=== PATIENT | female | born 1955 | race Caucasian/White ===

== ENCOUNTER → 2017-04-16 | Outpatient (CLI) | payer OTHER ==
[~2017-04-16] MED LIST: ASPI81TA82 PO; CYCL-36 PO; DIAZ5 PO; IBUP-232 PO; LEVO.025 PO; OXYC1SOL5 PO; PREG25 PO; PROZ20CA11 PO; PROZ40CA PO; ZOCO40TA PO; ZOLP1TAB32 PO
--- NOTE | 2017-04-17 08:08 | RSPPFT ---
DATE OF PROCEDURE: 04/15/17 COMMENTS: VOLUMES DYNAMIC: FVC and FEV1 mildly reduced. STATIC: FRC, RV and TLC normal. FLOWS: FEV1% normal; FEF 25-75 moderately reduced. DIFFUSION: Mildly reduced. FLOW VOLUME LOOP: Terminal airflow obstruction. IMPRESSION: Mild obstructive ventilatory defect with a mild reduction in diffusion and no hyperinflation. Airways resistance is increased but there is minimal improvement post-bronchodilator.
== END ==
LOC: HRSP 09:52
PROVIDERS: ATTEND Internal Medicine
DX: J44.9 Chronic obstructive pulmonary disease, unspecified (principal)
CPT/HCPCS: 94060; 94618; 94726; 94729; 95012

== ENCOUNTER 2017-05-20 11:14 | Emergency (ER) | payer OTHER ==
[~2017-05-20] VITALS: Ht 167.6 cm; Wt 78.0 kg
[2017-05-20 11:51] VITALS: BP 139/73; PULSE 101; RESP 17; TEMP 98.4; O2SAT 94
[2017-05-20 12:58] LABS: AUTOMATED NEUTROPHIL # 5.5 TH/MM3 (1.8-7.7); BASOPHIL # 0.1 TH/MM3 (0-0.2); BASOPHIL % 1.1 % (0.0-2.0); EOSINOPHIL # 0.2 TH/MM3 (0-0.4); EOSINOPHIL % 2.4 % (0.0-4.0); HEMATOCRIT 39.2 % (35.0-46.0); HEMOGLOBIN 13.7 GM/DL (11.6-15.3); LYMPH % 27.2 % (9.0-44.0); LYMPHOCYTE # 2.5 TH/MM3 (1.0-4.8); MEAN CELL VOLUME 87.9 FL (80.0-100.0); MEAN CORPUSCULAR HEMOGLOBIN 30.7 PG (27.0-34.0); MEAN CORPUSCULAR HGB CONC 34.9 % (32.0-36.0); MEAN PLATELET VOLUME 7.9 FL (7.0-11.0); MONO % 8.6 % (0.0-8.0); MONOCYTE # 0.8 TH/MM3 (0-0.9); NEUT % 60.7 % (16.0-70.0); PLATELET COUNT 281 TH/MM3 (150-450); RED BLOOD COUNT 4.46 MIL/MM3 (4.00-5.30); RED CELL DISTRIBUTION WIDTH 13.3 % (11.6-17.2)
--- NOTE | 2017-05-20 13:06 | RADRPT ---
EXAM DATE/TIME: 05/20/2017 12:15 [facility] COMPARISON: No previous studies available for comparison. [facility] INDICATIONS : Lower cenetered chest pain for two weeks. MEDICAL HISTORY : None. SURGICAL HISTORY : None. ENCOUNTER: Initial ACUITY: 2 weeks PAIN SCORE: 4/10 LOCATION: Bilateral chest Center FINDINGS: PA and lateral views of the chest demonstrate the lungs to be symmetrically aerated without evidence of mass, infiltrate or effusion. The cardiomediastinal contours are unremarkable. Osseous structure s are intact. Surgical hardware is seen in the lumbar spine. CONCLUSION: No acute disease. Curtis Rodriguez MD on May 20, 2017 at 13:04 Board Certified Radiologist. This report was verified electronically.
[2017-05-20 13:20] LABS: BICARBONATE 31.9 MEQ/L (21.0-32.0); BLOOD UREA NITROGEN 11 MG/DL (7-18); CALCIUM 9.4 MG/DL (8.5-10.1); CHLORIDE 102 MEQ/L (98-107); CREATININE 0.67 MG/DL (0.50-1.00); GLOMERULAR FILTRATION RATE 89 ML/MIN (>89); GLUCOSE,RANDOM 99 MG/DL (74-106); SODIUM (NA) 139 MEQ/L (136-145)
[2017-05-20 13:24] LABS: TROPONIN I LESS THAN 0.02 NG/ML (0.02-0.05)
[2017-05-20 14:10] VITALS: BP 120/59; PULSE 85; RESP 20; O2SAT 98
[2017-05-20] MEDS ORDERED: VITACAP7 PO (14:18)
[2017-05-20] MEDS ORDERED: CYCL10TA PO (14:18)
[2017-05-20] MEDS ORDERED: VITA200C3 PO (14:18)
[2017-05-20] MEDS ORDERED: PROZ40CA PO (14:18)
[2017-05-20] MEDS ORDERED: ZOLP10TA3 PO (14:18)
[2017-05-20] MEDS ORDERED: PROT40TA PO (14:18)
[2017-05-20] MEDS ORDERED: VITA100018 PO (14:18)
[2017-05-20] MEDS ORDERED: ROSU1TAB8 PO (14:18)
[2017-05-20] MEDS ORDERED: LEVO100T5 PO (14:18)
[2017-05-20] MEDS ORDERED: VENTAER INH (14:18)
[2017-05-20] MEDS ORDERED: ZINC50TA2 PO (14:18)
[2017-05-20] MEDS ORDERED: DIAZ5TAB PO (14:18)
[2017-05-20] MEDS ORDERED: HYDR-3583 PO (14:18)
[2017-05-20] MEDS ORDERED: VITA250T3 PO (14:18)
[2017-05-20] MEDS ORDERED: SELE200T17 PO (14:18)
--- NOTE | 2017-05-20 14:22 | PD ---
HPI Chief Complaint: Cardiac Complaint Time Seen by Provider: 14:09 Travel History International Travel<30 days: No Contact w/Intl Traveler<30days: No Traveled to known affect area: No History of Present Illness HPI This is a 62-year-old female presents for evaluation. She reports over the past 2-3 months she has had a tightness sensation in her epigastrium, wheezing, dyspnea with exertion. She reports that she was recently referred to a neurologist Dr. Diaz for pulmonary function testing and she has a repeat appointment with him in 1 week. Symptoms have been persistent for the past 2-3 months and that is what brought her in today. Symptoms have not been getting any worse or any better. She denies cough, congestion, substernal chest pain, nausea, vomiting, diarrhea, constipation, fevers, chills. She denies orthopnea or paroxysmal nocturnal dyspnea. She reports previous history of tobacco use. Denies any history of heart disease. She has no other complaints at this time. PFSH Past Medical History Arthritis: No Blood Disorders: No Anxiety: Yes Cancer: No Cardiovascular Problems: No Chemotherapy: No Cerebrovascular Accident: No Diabetes: No Diminished Hearing: No Endocrine: No Genitourinary: No Headaches: No Immune Disorder: No Musculoskeletal: Yes Neurologic: Yes (back pain down back leg) Psychiatric: Yes Reproductive: No Respiratory: No Migraines: No Radiation Therapy: No Seizures: No Thyroid Disease: Yes Tetanus Vaccination: < 5 Years Influenza Vaccination: Yes : 2 Para: 2 Miscarriage: 0 : 0 Tubal Ligation: Yes Past Surgical History Abdominal Surgery: No Cardiac Surgery: No Ear Surgery: No Endocrine Surgery: No Eye Surgery: No Genitourinary Surgery: No Gynecologic Surgery: No Oral Surgery: No Thoracic Surgery: No Other Surgery: Yes (bilat carpal marisela release) Social History Alcohol Use: Yes (occ wine) Tobacco Use: No Substance Use: No Allergies-Medications (Allergen,Severity, Reaction): Coded Allergies: morphine (Unverified Allergy, Severe, Hives and difficulty breathing, 09/23) Reported Meds & Prescriptions Reported Meds & Active Scripts Active Reported Ventolin Hfa 18 GM Inh (Albuterol Sulfate) 90 Mcg/Act Aer 2 Puff INH Q4H PRN Vitamin C (Ascorbic Acid) 250 Mg Tab 500 Mg PO B Complex (B-Complex Vitamins) 1 Cap 1 Cap PO DAILY Vitamin D3 (Cholecalciferol) 1,000 Unit Tab 1,000 Units PO DAILY Flexeril (Cyclobenzaprine HCl) 10 Mg Tab 10 Mg PO TID Diazepam 5 Mg Tab 5 Mg PO TID PRN Prozac (Fluoxetine HCl) 40 Mg Cap 40 Mg PO DAILY Hydrocodone-Acetaminophen 10-325 mg Tab 1 Tab PO Q6H PRN Levothyroxine (Levothyroxine Sodium) 100 Mcg Tab 100 Mcg PO DAILY Protonix (Pantoprazole Sodium) 40 Mg Tab 40 Mg PO DAILY Rosuvastatin (Rosuvastatin Calcium) 20 Mg Tab 20 Mg PO DAILY Selenium 200 Mcg Tab 200 Mg PO DAILY Vitamin E 200 Unit Cap 400 Units PO DAILY Zinc Gluconate 50 Mg Tab 50 Mg PO DAILY Zolpidem (Zolpidem Tartrate) 10 Mg Tab 10 Mg PO HS PRN Review of Systems Except as stated in HPI: all other systems reviewed are Neg Physical Exam Narrative GENERAL: Well-developed well-nourished female no acute distress SKIN: Warm and dry. HEAD: Atraumatic. Normocephalic. EYES: Pupils equal and round. No scleral icterus. No injection or drainage. ENT: No nasal bleeding or discharge. Mucous membranes pink and moist. NECK: Trachea midline. No JVD. CARDIOVASCULAR: Regular rate and rhythm. No murmur appreciated. RESPIRATORY: No accessory muscle use. Clear to auscultation. Breath sounds equal bilaterally. GASTROINTESTINAL: Abdomen soft, mild tenderness to palpation in the epigastrium and right upper quadrant without guarding. MUSCULOSKELETAL: No obvious deformities. No clubbing. No cyanosis. No edema. NEUROLOGICAL: Awake and alert. No obvious cranial nerve deficits. Motor grossly within normal limits. Normal speech. PSYCHIATRIC: Appropriate mood and affect; insight and judgment normal. Data Data Last Documented VS Vital Signs Date Time Temp Pulse Resp B/P (MAP) Pulse Ox O2 Delivery O2 Flow Rate FiO2 05/20/17 14:10 85 20 120/59 (79) 98 Room Air 05/20/17 11:51 98.4 Orders Orders Electrocardiogram (05/20/17 11:53) Complete Blood Count With Diff (05/20/17 11:53) Basic Metabolic Panel (Bmp) (05/20/17 11:53) Ckmb (Isoenzyme) Profile (05/20/17 11:53) Troponin I (05/20/17 11:53) Chest, Pa & Lat (05/20/17 11:53) Hepatic Functional Panel (05/20/17 14:15) Lipase (05/20/17 14:15) Us Abdomen Gallbladder (05/20/17 ) B-Type Natriuretic Peptide (05/20/17 14:15) Acetaminophen (Tylenol) (05/20/17 14:30) Ed Discharge Order (05/20/17 16:32) Labs Laboratory Tests Test 05/20/17 12:27 05/20/17 14:30 White Blood Count 9.0 TH/MM3 Red Blood Count 4.46 MIL/MM3 Hemoglobin 13.7 GM/DL Hematocrit 39.2 % Mean Corpuscular Volume 87.9 FL Mean Corpuscular Hemoglobin 30.7 PG Mean Corpuscular Hemoglobin Concent 34.9 % Red Cell Distribution Width 13.3 % Platelet Count 281 TH/MM3 Mean Platelet Volume 7.9 FL Neutrophils (%) (Auto) 60.7 % Lymphocytes (%) (Auto) 27.2 % Monocytes (%) (Auto) 8.6 % Eosinophils (%) (Auto) 2.4 % Basophils (%) (Auto) 1.1 % Neutrophils # (Auto) 5.5 TH/MM3 Lymphocytes # (Auto) 2.5 TH/MM3 Monocytes # (Auto) 0.8 TH/MM3 Eosinophils # (Auto) 0.2 TH/MM3 Basophils # (Auto) 0.1 TH/MM3 CBC Comment DIFF FINAL Differential Comment Blood Urea Nitrogen 11 MG/DL Creatinine 0.67 MG/DL Random Glucose 99 MG/DL Calcium Level 9.4 MG/DL Sodium Level 139 MEQ/L Potassium Level 3.8 MEQ/L Chloride Level 102 MEQ/L Carbon Dioxide Level 31.9 MEQ/L Anion Gap 5 MEQ/L Estimat Glomerular Filtration Rate 89 ML/MIN Total Creatine Kinase 95 U/L Troponin I LESS THAN 0.02 NG/ML Total Bilirubin 0.3 MG/DL Direct Bilirubin 0.1 MG/DL Indirect Bilirubin 0.2 MG/DL Aspartate Amino Transf (AST/SGOT) 23 U/L Alanine Aminotransferase (ALT/SGPT) 29 U/L Alkaline Phosphatase 93 U/L B-Type Natriuretic Peptide 3 PG/ML Total Protein 7.5 GM/DL Albumin 3.6 GM/DL Lipase 196 U/L [facility] Medical Decision Making Medical Screen Exam Complete: Yes Emergency Medical Condition: Yes Medical Record Reviewed: Yes Differential Diagnosis COPD, pleural effusion, pneumothorax, pancreatitis, biliary colic, mass, CHF, angina, GERD Narrative Course This is a 62-year-old female who for 2-3 months has been experiencing wheezing, dyspnea with exertion, tightness in her epigastrium. On examination she has mild tenderness to palpation in the epigastrium and right upper quadrant. Her lungs are clear to auscultation. She has no lower extremity edema. EKG reveals sinus rhythm without any acute ischemic changes. Plan is for basic lab work, chest x-ray. Chest x-ray reveals no acute disease. CBC is unremarkable. BMP is unremarkable. CK and troponin are normal. Gallbladder ultrasound reveals likely hepatic steatosis with no gallbladder abnormalities. She has been stable during her hospital stay. At this point time the plan will be to discharge the patient to have her follow-up with her services program manager next week as scheduled. She understands to return for any acutely new or worsening symptoms. She is stable for discharge. Diagnosis Primary Impression: Dyspnea Additional Impression: Wheezing Additional Instructions: Follow-up with pulmonology as scheduled. Follow-up with your primary care physician. Return for any acutely new or worsening symptoms. Med/Other Pt SpecificInfo: No Change to Meds Disposition: 01 DISCHARGE HOME Condition: Stable Amilcar Campbell May 20, 2017 14:22
[2017-05-20] MEDS ORDERED: ACETAMINOPHEN 325 MG TAB PO ONE (14:30)
[2017-05-20 14:59] LABS: ALBUMIN 3.6 GM/DL (3.4-5.0); DIRECT BILIRUBIN ADULT 0.1 MG/DL (0.0-0.2)
[2017-05-20 15:01] LABS: INDIRECT BILIRUBIN 0.2 MG/DL (0.0-0.8); TOTAL BILIRUBIN ADULT 0.3 MG/DL (0.2-1.0); TOTAL PROTEIN 7.5 GM/DL (6.4-8.2)
[2017-05-20 16:00] VITALS: RESP 20
--- NOTE | 2017-05-20 16:26 | RADRPT ---
EXAM DATE/TIME: 05/20/2017 15:21 [facility] COMPARISON: No previous studies available for comparison. INDICATIONS : Right upper quadrant pain. MEDICAL HISTORY : Thyroid disease. SURGICAL HISTORY : Tubal ligation. Back surgery. Carpal tunnel release. ENCOUNTER: Initial ACUITY: 1 day PAIN SCORE: 0/10 LOCATION: Right upper quadrant MEASUREMENTS: LIVER: 18.1 cm length COMMON DUCT: 5 mm RIGHT KIDNEY: 11.3 x 4.7 x 5.0 cm FINDINGS: LIVER: Diffusely increased echogenicity, suggesting steatosis. Focally diminished echogenicity adjacent to g allbladder fossa is likely sparing. COMMON DUCT: No intraluminal mass or stone visualized. GALLBLADDER: Contains no stones, demonstrates no wall thickening or pericholecystic fluid. PANCREAS: The visualized portions are within normal limits. RIGHT KIDNEY: No evidence of hydronephrosis, stone, or mass. CONCLUSION: Likely hepatic steatosis. No gallbladder abnormalities. Curtis Tenorio MD on May 20, 2017 at 16:23 Board Certified Radiologist. This report was verified electronically.
[2017-05-20 16:38] VITALS: BP 116/62
--- NOTE | 2017-05-21 18:52 | EKG ---
Date Performed: 05/20/2017 Time Performed: 12:25:28 PTAGE: 62 years EKG: Sinus rhythm POSSIBLE RIGHT VENTRICULAR CONDUCTION DELAY Since the previous tracing, no significant change noted BORDERLINE ECG PREVIOUS TRACING : 03/22/2007 14.13 DOCTOR: Logan Martinez Interpretating Date/Time 05/21/2017 18:47:58
== END 2017-05-20 16:40 | disposition home or self-care (01) ==
LOC: NEPC 11:14
DX: R06.00 Dyspnea, unspecified (principal); R06.2 Wheezing; F41.9 Anxiety disorder, unspecified; E07.9 Disorder of thyroid, unspecified; Z79.899 Other long term (current) drug therapy; Z88.5 Allergy status to narcotic agent
CPT/HCPCS: 71046; 76705; 80048; 80076; 82550; 83690; 83880; 84484; 85025; 93005